=== PATIENT | male | born 1945 | race Caucasian/White ===

== ENCOUNTER → 2023-12-06 08:10 | Outpatient (REF) | payer OTHER, SELFPAY ==
--- NOTE | ~2023-12-06 | NM_ITS ---
Lexiscan Myocardial perfusion study Indication: Shortness of breath Technique: The patient was brought in for a Lexiscan perfusion study on 12/06/2023 and was injected 0.4 mg of Lexiscan intravenously. Within a minute of this injection 23 mCi of sestamibi was given intravenously. Images were obtained using the SPECT gamma camera interlaced with the gating device. Images were obtained in supine position. Resting perfusion study was performed on 12/07/2023. Patient was administered 23 mCi of sestamibi intravenously at rest. Images were then obtained in supine position. Total DLP 176 mGy-cm. Images were processed with the software and compared side to side in short axis, horizontal long axis and vertical long axis views. Findings: Raw aquisition reviewed. Arms by the patient's side. The stress perfusion study showed diminished tracer uptake in the distal part of anterior wall. There is improvement with CT attenuation correction suggestive of soft tissue attenuation artifact. The gated study shows normal LV systolic function with calculated LVEF of 57%. LV cavity is normal in size. The gated study shows normal wall thickening and contraction of segments. Resting study shows diminished tracer uptake in the distal body and anterior, lateral wall. There is improvement with CT attenuation correction suggestive of soft tissue attenuation artifact. Gating at rest reveals normal wall motion with ejection fraction at 61%. The findings are consistent with fixed appearing defect in the distal part of anterior wall, probably from soft tissue attenuation artifact. No clearly was bony defects. NM/NM rehana perf SPECT rest & str Impression: 1. Myocardial perfusion imaging study shows no clear evidence of ischemia. Fixed distal anterior defect possibly from soft tissue attenuation artifact. Less likely nontransmural infarct. 2. Gated LVEF is 57% during stress and 61% during rest. 3. Transient ischemic dilatation not present. EKG component of the test reported separately. Electronically signed by: Clement Mancuso MD 12/08/2023 04:52 PM EDT RP
--- NOTE | 2023-12-06 08:17 | CA_ITS ---
Acquisition Time: 2023-12-06 08:08:38 Total Exercise Time: 00:02:00 Test Indications: Dyspnea Medications: ALBUTEROL BUPROPION MELOXICAM FLUOXETINE SIMVASTATIN Protocol: LEXISCAN Max HR: 106 BPM 73% of Pred: 144 BPM Max BP: 144/076 mmHG Max Work Load: 1.0 METS Pharmacological stress test with Lexiscan injection, while sitting and kicking his legs, without anginal symptoms, with isolated PAC, with normotensive response to injection, with nondiagnostic EKG for ischemia. Nuclear images pending. Test reviewed with Dr Mancuso. Referred By: Antione Hernández Overread By: ALLEN GRANADOS
== END ==
LOC: HO.CARD 08:10
PROVIDERS: PCP Internal Medicine; Visit Provider Internal Medicine
DX: R06.00 Dyspnea, unspecified (principal)
CPT/HCPCS: 78452; 93017; A9500; J0280; J2785

== ENCOUNTER → 2023-12-06 08:17 | Outpatient (BNV) | payer OTHER, SELFPAY | PROVIDERS: PCP Internal Medicine; Visit Provider Nurse Practitioner Family | DX: I49.1 Atrial premature depolarization (principal) | CPT/HCPCS: 78452; 93016; 93018 ==